=== PATIENT | male | born 1980 | race Caucasian/White ===

== ENCOUNTER 2017-10-10 22:26 | Emergency (ER) | payer OTHER ==
[~2017-10-10] VITALS: Ht 182.9 cm; Wt 102.5 kg
[~2017-10-10 22:26] MED LIST: CIPROFLOXACIN500 M1 PO; CLARITIN10 MG PO; IBUPROFEN 800800 M1 PO; OMEPRAZOLE20 M2 PO; PERCOCET 5-3251 EACH PO; PERCOCET PO; PROAIR HFA8.5 GM INH; TRAMADOL 50 MG50 MG PO; ZOFRAN ODT4 MG PO; ZOFRAN4 MG PO; ZPAK PO
[2017-10-10 23:22] LABS: ABSOLUTE BASOPHILS 0.1 thou/uL (0.0-0.2); ABSOLUTE EOSINOPHILS 0.4 thou/uL (0.0-0.7); ABSOLUTE MONOCYTES 0.9 thou/uL (0.0-1.2); ABSOLUTE NEUTROPHILS 3.8 thou/uL (1.6-8.1); BASOPHILS 0.9 %; EOSINOPHILS 4.8 %; HEMATOCRIT 46.7 % (42.0-52.0); LYMPHOCYTES 37.1 %; MCH 28.9 pg (26.0-34.0); MCHC 34.2 g/dL (28.0-37.0); MCV 84.5 fL (80.0-100.0); MONOCYTES 11.1 %; MPV 8.2 fl. (7.2-11.1); NUCLEATED RBCS 0 /100WBC; PLATELET COUNT* 207 thou/uL (150-400); POLYS 46.1 %; RBC 5.53 mil/uL (4.50-6.00); RDW-CV 13.9 % (10.5-14.5); WBC 8.2 thou/uL (4.0-11.0)
[2017-10-10 23:51] LABS: CALCIUM 8.8 mg/dL (8.5-10.1); POTASSIUM 3.8 mmol/L (3.5-5.1)
[2017-10-10 23:56] LABS: ALBUMIN 3.8 g/dL (3.4-5.0); TOTAL BILIRUBIN 0.2 mg/dL (<0.1-1.0); TOTAL PROTEIN 7.2 g/dL (6.4-8.2)
[2017-10-11] MEDS ORDERED: BENTYL 20 MG TA20 M1 PO (00:03)
[2017-10-11] MEDS ORDERED: ZOFRAN ODT4 MG PO (00:03)
[2017-10-11 00:33] VITALS: BP 110/74
== END 2017-10-11 00:34 | disposition home or self-care (01) ==
LOC: M.ERS 22:26
PROVIDERS: Emergency Medicine
DX: R19.7 Diarrhea, unspecified (principal); R11.10 Vomiting, unspecified; F17.220 Nicotine dependence, chewing tobacco, uncomplicated; Z88.5 Allergy status to narcotic agent

== ENCOUNTER 2017-11-04 21:16 | Emergency (ER) | payer OTHER ==
[~2017-11-04] VITALS: Ht 180.3 cm; Wt 104.3 kg
[~2017-11-04 21:16] MED LIST changes: +BENTYL 20 MG TA20 M1 PO
[2017-11-04 21:26] VITALS: BP 149/96
[2017-11-04] MEDS ORDERED: IBUPROFEN 800800 M1 PO (21:29)
[2017-11-04] MEDS ORDERED: KEFLEX500 M1 PO (21:29)
== END 2017-11-04 21:36 | disposition home or self-care (01) ==
LOC: M.ERS 21:16
DX: L03.012 Cellulitis of left finger (principal); F17.220 Nicotine dependence, chewing tobacco, uncomplicated; Z88.5 Allergy status to narcotic agent

== ENCOUNTER 2017-11-12 19:32 | Emergency (ER) | payer OTHER ==
[~2017-11-12] VITALS: Ht 180.3 cm; Wt 104.3 kg
[~2017-11-12 19:32] MED LIST changes: +KEFLEX500 M1 PO
[2017-11-12 20:06] LABS: HEMATOCRIT 50.3 % (42.0-52.0); HEMOGLOBIN 17.1 gm/dL (14.0-18.0); MCHC 33.9 g/dL (28.0-37.0); MCV 85.6 fL (80.0-100.0); MPV 7.9 fl. (7.2-11.1); NUCLEATED RBCS 0 /100WBC; PLATELET COUNT* 191 thou/uL (150-400); RBC 5.88 mil/uL (4.50-6.00); RDW-CV 14.2 % (10.5-14.5); WBC 9.7 thou/uL (4.0-11.0)
[2017-11-12 20:13] LABS: CALCIUM 8.2 mg/dL (8.5-10.1); CREATININE 1.2 mg/dL (0.6-1.3); POTASSIUM 3.6 mmol/L (3.5-5.1)
[2017-11-12 20:18] LABS: ALBUMIN 4.1 g/dL (3.4-5.0); TOTAL BILIRUBIN 0.7 mg/dL (<0.1-1.0); TOTAL PROTEIN 7.6 g/dL (6.4-8.2)
[2017-11-12 20:27] LABS: ABSOLUTE EOSINOPHILS 0.1 thou/uL (0.0-0.7); ABSOLUTE LYMPHOCYTES 0.8 thou/uL (0.8-5.3); ABSOLUTE MONOCYTES 0.7 thou/uL (0.0-1.2); ABSOLUTE NEUTROPHILS 8.1 thou/uL (1.6-8.1); ATYPICAL LYMPHS 1 %
[2017-11-12 20:28] LABS: PLATELET ESTIMATE ADEQUATE
[2017-11-12 20:38] LABS: URINE BILIRUBIN NEGATIVE (Negative); URINE BLOOD NEGATIVE (Negative); URINE CLARITY CLEAR; URINE COLOR YELLOW; URINE GLUCOSE-RANDOM NEGATIVE (Negative); URINE KETONES NEGATIVE (Negative); URINE LEUKOCYTES-REFLEX NEGATIVE (Negative); URINE NITRITE-REFLEX NEGATIVE (Negative); URINE PROTEIN TRACE (Negative); URINE SPECIFIC GRAVITY 1.025 (1.005-1.030)
[2017-11-12] MEDS ORDERED: ZOFRAN ODT4 MG PO (20:54)
[2017-11-12] MEDS ORDERED: BENTYL 20 MG TA20 M1 PO (20:54)
[2017-11-12 21:40] VITALS: BP 104/51
== END 2017-11-12 21:41 | disposition home or self-care (01) ==
LOC: M.ERS 19:32
PROVIDERS: Nurse Practitioner Family
DX: K52.9 Noninfective gastroenteritis and colitis, unspecified (principal); F17.220 Nicotine dependence, chewing tobacco, uncomplicated; Z88.5 Allergy status to narcotic agent